=== PATIENT | female | born 1960 | race Caucasian/White ===

== ENCOUNTER 2022-04-02 09:49 | Day surgery (SDC) | payer OTHER ==
[~2022-04-02] VITALS: Ht 160 cm; Wt 61.7 kg
[2022-04-02] MEDS ORDERED: fentaNYL citrate 0.05 MG/ML VIAL ONE (11:11)
[2022-04-02] MEDS ORDERED: LIDOCAINE 2% 100 MG/5 ML UJET TP ONE (11:11)
[2022-04-02] MEDS ORDERED: fentaNYL citrate 0.05 MG/ML VIAL IVP ONE (12:25)
== END 2022-04-02 12:25 | disposition home or self-care (01) ==
LOC: MDS 09:49 → MMU 09:50 → MDS 12:25
PROVIDERS: ATTEND Internal Medicine Gastroenterology
DX: Z12.11 Encounter for screening for malignant neoplasm of colon (principal); K57.30 Diverticulosis of large intestine without perforation or abscess without bleeding; Z20.822 Contact with and (suspected) exposure to COVID-19; Z79.899 Other long term (current) drug therapy
CPT/HCPCS: 45378; 87426; J3010